=== PATIENT | female | born 1940 ===

== ENCOUNTER 2018-06-30 07:15 | Day surgery (SDC) | payer OTHER ==
[~2018-06-30 07:15] MED LIST: ASPIR 8181 MG PO; COZAAR100 MG PO; LIPITOR20 MG PO; METFORMIN HCL500 MG PO; OXYBUTYNIN CHLO15 MG PO; SINGULAIR10 MG PO; SYNTHROID112 MCG PO
[2018-06-30] MEDS ORDERED: KEFLEX500 MG PO (11:58)
[2018-06-30] MEDS ORDERED: ULTRACET PO (12:00)
== END 2018-06-30 14:25 | disposition home or self-care (01) ==
LOC: CIR.AMB 07:15
DX: N39.41 Urge incontinence (principal); N32.81 Overactive bladder